=== PATIENT | male | born 1995 | race Caucasian/White ===

== ENCOUNTER 2023-08-17 02:23 | Emergency (ER) | payer MEDICAID ==
[~2023-08-17] VITALS: Ht 188 cm; Wt 79.5 kg
[2023-08-17 02:30] VITALS: TEMP 98.1
[2023-08-17 02:33] VITALS: BP 161/79; PULSE 81; RESP 17; O2SAT 98
[2023-08-17] MEDS ORDERED: CLIN300C70 PO (03:43)
[2023-08-17] MEDS ORDERED: IBUP-1456 PO (03:43)
[2023-08-17] MEDS ORDERED: CEPH500C PO (03:43)
[2023-08-17] MEDS ORDERED: cefTRIAXone SOD 1,000 MG VL IM ONE (03:45)
[2023-08-17] MEDS ORDERED: KETOROLAC TROMETH 60MG/2ML VIAL IM ONE (03:45)
== END 2023-08-17 04:07 | disposition home or self-care (01) ==
LOC: ER 02:23
DX: L03.113 Cellulitis of right upper limb (principal); F17.210 Nicotine dependence, cigarettes, uncomplicated; F15.90 Other stimulant use, unspecified, uncomplicated; Z79.899 Other long term (current) drug therapy
CPT/HCPCS: 73140; 96372; 99284; J0696; J1885

== ENCOUNTER 2024-06-12 11:10 | Emergency (ER) | payer MEDICAID ==
[~2024-06-12] VITALS: Ht 182.9 cm; Wt 85.0 kg
[~2024-06-12 11:10] MED LIST: CEPH500C PO; CLIN1CAP70 PO; IBUP-1456 PO
[2024-06-12 11:27] VITALS: BP 157/107; PULSE 85; RESP 20; TEMP 98.6; O2SAT 94
[2024-06-12] MEDS ORDERED: KETOROLAC TROMETH 30 MG/ML 1ML VIAL IV ONE (11:45)
--- NOTE | 2024-06-12 11:53 | ED.PDOC ---
History of Present Illness HPI Comments 29-year-old male patient with no past medical history presented with complaints of right-sided flank pain that started yesterday morning associated with nausea vomiting and diarrhea for last one day. He described the pain as stabbing, 10/10, radiating to the right-sided groin. He does not remember the number of episodes of vomiting but mentioned no blood. He does not remember the number of loose stools but mentioned no blood. He denied any complaints of urinary frequency, burning micturition, chest pain, shortness of breath, cough, headache, dizziness. He denied any recent trauma or injury. Past medical history Denied Past surgical history Denied Social history Patient is active smoker, consumes marijuana, denied alcohol or any other drug intake Family history Noncontributory Allergic history No known allergies Medication history Denied Review of system As described in the HPI Examination General Appearance: Alert, Oriented X3, Cooperative, No acute distress Eyes : No erythema, no discharge Respiratory: Bilateral air entry present, no crackles, no wheezing Cardiovascular: Regular rate, Normal S1, Normal S2, no S3, no S4, no murmurs Abdominal: Soft, right flank tenderness, right lower quadrant tenderness, no generalized tenderness on generalized rigidity, no rebound tenderness Extremities: No cyanosis, No edema, Normal pulses, No tenderness/swelling Skin: No rashes, No breakdown Neuro: Normal gait, Normal speech, normal tone Attestation note: Dr. Ross: I was the supervising attending for this ED encounter. Please see the resident's notes. I was available for questions and consultations. Differential diagnosis: Flank pain Flank Pain; DDX include Nephrolethiasis, obstructive uropathy, kidney cancer, renal infarct, intraabdominal neoplasm, lower lobe pneumonia, retroperitoneal hemorrhage, pancreatitis, aneurysm, dissection, musculoskeletal, rib contusion/trauma, hematoma, PYLONEPHRITIS, muscle strain, spinal disease. MDM: Patient presented with the above HPI.-flank pain/GI symptoms-----workup was initiated. patient was found with the above mentioned diagnosis. Patient eloped. We were intending to admit the patient to the hospital. Chief Complaint: Flank Pain Time Seen by MD: 11:22 Primary Care Provider: none Reviewed Notes: Nurses Notes, Formulation Technician Notes, Medications, Allergies Allergies: Coded Allergies: NO KNOWN ALLERGIES (Unverified , 08/17/23) Home Meds Active Scripts Clindamycin Hcl (Clindamycin Hcl) 300 Mg Cap, 1 CAP PO TID for 7 Days, #21 CAP 0 Refills Prov:ARIANA PETERS 08/17/23 Ibuprofen (Ibuprofen) 800 Mg Tab, 1 TAB PO TID PRN, #30 TAB 0 Refills Prov:ARIANA PETERS 08/17/23 Cephalexin Monohydrate (Cephalexin) 500 Mg Cap, 1 CAP PO BID for 7 Days, #14 CAP 0 Refills Prov:ARIANA PETERS 08/17/23 Information Source: Patient, Emergency Med Personnel Mode of Arrival: EMS Differential Dx Considerations may include: UTI, ureterolithiasis, pancreatitis, gastritis, gastroduodenitis, appendicitis, cholecystitis, choledocholithiasis, cholelithiasis, cholangitis, colitis, diverticulitis X-Ray, Labs, Meds, VS Vital Signs Date Time Temp Pulse Resp B/P (MAP) Pulse Ox O2 Delivery O2 Flow Rate FiO2 06/12/24 11:28 Room Air* 0 21 06/12/24 11:27 98.6 85 20 157/107 (124) 94 98.6 06/12/24 11:18 98.9 86 24 96 Lab Test 06/12/24 12:33 Range/Units White Blood Count 13.2 H 4.4-10.8 10^3/uL Red Blood Count 5.69 4.5-5.90 10^6/uL Hemoglobin 16.8 13.5-17.5 g/dL Hematocrit 48.5 41.0-53.0 % Mean Corpuscular Volume 85.3 80.0-100.0 fL Mean Corpuscular Hemoglobin 29.6 28.0-32.0 pg Mean Corpuscular Hemoglobin Concent 34.7 32.0-36.0 g/dL Red Cell Distribution Width 12.7 11.8-14.3 % Platelet Count 327 140-450 10^3/uL Mean Platelet Volume 6.7 L 6.9-10.8 fL Neutrophils (%) (Auto) 85.0 H 37.0-80.0 % Lymphocytes (%) (Auto) 8.1 L 10.0-50.0 % Monocytes (%) (Auto) 5.1 0.0-12.0 % Eosinophils (%) (Auto) 1.6 0.0-7.0 % Basophils (%) (Auto) 0.2 0.0-2.0 % Neutrophils # (Auto) 11.2 H 1.6-8.6 10 ^3/uL Lymphocytes # (Auto) 1.1 0.4-5.4 10 ^3/uL Monocytes # (Auto) 0.7 0-1.3 10 ^3/uL Eosinophils # (Auto) 0.2 0-0.8 10 ^3/uL Basophils # (Auto) 0 0-0.2 10 ^3/uL Nucleated Red Blood Cells 0.1 % Sodium Level 140 136-145 mmol/L Potassium Level 4.1 3.5-5.1 mmol/L Chloride Level 101 98-107 mmol/L Carbon Dioxide Level 33 H 20-31 mmol/L Anion Gap 6 5-15 Blood Urea Nitrogen 13 9-23 mg/dL Creatinine 1.21 0.700-1.30 mg/dL Glomerular Filtration Rate Calc 82 >90 mL/min BUN/Creatinine Ratio 10.7 10.0-20.0 Serum Glucose 139 H 74-106 mg/dL Lactic Acid Level 1.0 0.4-2.0 mmol/L Calcium Level 10.4 8.7-10.4 mg/dL Total Bilirubin 0.5 0.2-1.0 mg/dL Aspartate Amino Transferase (AST) 20 13-40 U/L Alanine Aminotransferase (ALT) 24 7-40 U/L Alkaline Phosphatase 126 H 46-116 U/L Troponin I High Sensitivity 3 L </=54 ng/L Total Protein 7.6 5.7-8.2 g/dL Albumin 5.0 H 3.2-4.8 g/dL Lipase 57 H 12-53 U/L [place] [address] Ph: [phone] DIAGNOSTIC IMAGING Diagnostic Imaging Report : [id number] Signed PATIENT: ERMELINDA RAYO ACCT: [id number] UNIT: [id number] : 1995 LOC: ER ROOM / BED: / AGE / SEX: 29 / M ADM STATUS: REG ER SERVICE 1139 ORDERING PHYSICIAN: ODETTE MONTES RESIDENT PROCEDURE(s): ABPL - CT AB PEL WO CON-NO ORAL OR IV REASON: right flank pain ORDER NUMBER(s): [id number], ACCESSION NUMBER(s): [id number] CT ABDOMEN AND PELVIS WITHOUT CONTRAST CLINICAL HISTORY: right flank pain TECHNIQUE: Multiple contiguous axial images of the abdomen and pelvis without intravenous contrast. The images were reformatted degenerate coronal and sagittal reconstructions. All CT scans at this medical facility are performed using dose modulation techniques as appropriate to a performed exam including the following:Automated exposure control was utilized; adjustment of the MA and/or KV according to patient size; and use of iterative reconstruction technique. Radiation Dose Information: CT Dose: CTDI volume is 6 mGy. Dose-length product is 359 mGy*cm Comparison: None FINDINGS: Evaluation of the abdomen and pelvis is limited without intravenous contrast. There is a 5 mm calculus in the proximal to mid right ureter with right hydroureteronephrosis. There is also a punctate 1 mm calculus in the midpole of the right kidney. There is no evidence of left renal calculus or hydronephrosis. The liver, gallbladder, pancreas, adrenal glands, and spleen appear within normal limits. There is no gross evidence of abdominal lymphadenopathy. There is no free fluid or free air. The stomach grossly appears unremarkable. The small and large bowel loops demonstrate normal caliber. The abdominal aorta and IVC appear within normal limits. The bladder appears unremarkable for the degree of distention. Pelvic organ appears within normal limits. There is no gross evidence of a pelvic mass. There is no free fluid collection. Lung bases are clear. There is no acute osseous abnormality. IMPRESSION: 1. 5 mm calculus in the proximal to mid right ureter. There is right hydroureteronephrosis. 2. Additional punctate 1 mm calculus in the midpole of the right kidney. HS:Y ATED BY: PEDRO BURRELL MD DICTATED DATE/TIME: 06/12/24 1232 SIGNED BY: PEDRO BURRELL MD SIGNED DATE/TIME: 06/12/24 123 CC: X-Ray, Labs, Meds, VS Comment [address] [address] Ph: [phone] DIAGNOSTIC IMAGING Diagnostic Imaging Report : [id number] Signed PATIENT: ERMELINDA RAYO ACCT: [id number] UNIT: [id number] : 1995 LOC: ER ROOM / BED: / AGE / SEX: 29 / M ADM STATUS: REG ER SERVICE 1139 ORDERING PHYSICIAN: ODETTE MONTES RESIDENT PROCEDURE(s): ABPL - CT AB PEL WO CON-NO ORAL OR IV REASON: right flank pain ORDER NUMBER(s): [id number], ACCESSION NUMBER(s): [id number] CT ABDOMEN AND PELVIS WITHOUT CONTRAST CLINICAL HISTORY: right flank pain TECHNIQUE: Multiple contiguous axial images of the abdomen and pelvis without intravenous contrast. The images were reformatted degenerate coronal and sagittal reconstructions. All CT scans at this medical facility are performed using dose modulation techniques as appropriate to a performed exam including the following:Automated exposure control was utilized; adjustment of the MA and/or KV according to patient size; and use of iterative reconstruction technique. Radiation Dose Information: CT Dose: CTDI volume is 6 mGy. Dose-length product is 359 mGy*cm Comparison: None FINDINGS: Evaluation of the abdomen and pelvis is limited without intravenous contrast. There is a 5 mm calculus in the proximal to mid right ureter with right hydroureteronephrosis. There is also a punctate 1 mm calculus in the midpole of the right kidney. There is no evidence of left renal calculus or hydronephrosis. The liver, gallbladder, pancreas, adrenal glands, and spleen appear within normal limits. There is no gross evidence of abdominal lymphadenopathy. There is no free fluid or free air. The stomach grossly appears unremarkable. The small and large bowel loops demonstrate normal caliber. The abdominal aorta and IVC appear within normal limits. The bladder appears unremarkable for the degree of distention. Pelvic organ appears within normal limits. There is no gross evidence of a pelvic mass. There is no free fluid collection. Lung bases are clear. There is no acute osseous abnormality. IMPRESSION: 1. 5 mm calculus in the proximal to mid right ureter. There is right hydroureteronephrosis. 2. Additional punctate 1 mm calculus in the midpole of the right kidney. HS:Y ATED BY: PEDRO BURRELL MD DICTATED DATE/TIME: 06/12/24 1232 SIGNED BY: PEDRO BURRELL MD SIGNED DATE/TIME: 06/12/24 1232 CC: Time of 1ST Reevaluation: 14:21 Reevaluation 1ST: Patient eloped Patient Education/Counseling: Diagnosis, Treatment Family Education/Counseling: No Family Present Comments MDM Patient presented with the right-sided flank pain, nausea, vomiting, diarrhea. workup was initiated. Patient was given: [place] oral tablet, IV fluids CT abd pelvis without contrast showed 1. 5 mm calculus in the proximal to mid right ureter. There is right hydroureteronephrosis. 2. Additional punctate 1 mm calculus in the midpole of the right kidney. Later Pt eloped from the ER. Departure 1 Departure Time of Disposition: 14:21 Impression: Primary Impression: Right ureteral calculus Additional Impressions: Hydroureter, right Hydronephrosis, right Vomiting Diarrhea Leukocytosis Eloped from emergency department Disposition: 07 LEFT AWOL/ELOPED Condition: Other (undetermined as patient eloped. ) Additional Instructions: Eloped Discharged With: Self Critical Care Note Critical Care Time?: No Was a procedure done? Was a procedure done?: No I personally scribed for CORINE ROSS DO ([email or web address]) on 06/12/24 at 20:24. Electronically submitted by Rafaela Padilla ([email or web address]). ODETTE MONTES RESIDENT Jun 12, 2024 11:53 CORINE ROSS DO Jun 12, 2024 20:24
[2024-06-12] MEDS: HYDROcodone-ACET 5/325MG TAB PO ONE (12:02)
[2024-06-12] MEDS: SODIUM CHLORIDE 0.9% 1,000 ML IV ONE (12:03)
--- NOTE | 2024-06-12 12:32 | DVH ---
CT ABDOMEN AND PELVIS WITHOUT CONTRAST CLINICAL HISTORY: right flank pain TECHNIQUE: Multiple contiguous axial images of the abdomen and pelvis without intravenous contrast. The images were reformatted degenerate coronal and sagittal reconstructions. All CT scans at this medical facility are performed using dose modulation techniques as appropriate t o a performed exam including the following:Automated exposure control was utilized; adjustment of the MA and/or KV according to patient size; and use of iterative reconstruction technique. Radiation Dose Information: CT Dose: CTDI volume is 6 mGy. Dose-length product is 359 mGy*cm Comparison: None FINDINGS: Evaluation of the abdomen and pelvis is limited without intravenous contrast. There is a 5 mm calculus in the proximal to mid right ureter with right hydroureteronephrosis. There is also a punctate 1 mm calculus in the midpole of the right kidney. There is no evidence of left helder al calculus or hydronephrosis. The liver, gallbladder, pancreas, adrenal glands, and spleen appear within normal limits. There is no gross evidence of abdominal lymphadenopathy. There is no free fluid or free air. The stomach grossly appears unremarkable. The small and large bowel loops demonstrate normal caliber . The abdominal aorta and IVC appear within normal limits. The bladder appears unremarkable for the degree of distention. Pelvic organ appears within normal morton its. There is no gross evidence of a pelvic mass. There is no free fluid collection. Lung bases are clear. There is no acute osseous abnormality. IMPRESSION: 1. 5 mm calculus in the proximal to mid right ureter. There is right hydroureteronephrosis. 2. Additional punctate 1 mm calculus in the midpole of the right kidney. HS:Y
[2024-06-12 13:13] LABS: Basophils # (auto) 0 10 ^3/uL (0-0.2); Basophils % (auto) 0.2 % (0.0-2.0); Eosinophils # (auto) 0.2 10 ^3/uL (0-0.8); Eosinophils % (auto) 1.6 % (0.0-7.0); Hematocrit 48.5 % (41.0-53.0); Hemoglobin 16.8 g/dL (13.5-17.5); Lymphocytes # (auto) 1.1 10 ^3/uL (0.4-5.4); Lymphocytes % (auto) 8.1 % (10.0-50.0); Mean Corpuscular Hemoglobin 29.6 pg (28.0-32.0); Mean Corpuscular Hgb Conc. 34.7 g/dL (32.0-36.0); Mean Corpuscular Volume 85.3 fL (80.0-100.0); Monocytes # (auto) 0.7 10 ^3/uL (0-1.3); Monocytes % (auto) 5.1 % (0.0-12.0); Neutrophils # (auto) 11.2 10 ^3/uL (1.6-8.6); Nucleated Red Blood Cells % 0.1 %; Platelet Count (auto) 327 10^3/uL (140-450); Red Blood Cells 5.69 10^6/uL (4.5-5.90); Red Cell Distribution Width 12.7 % (11.8-14.3); White Blood Cell 13.2 10^3/uL (4.4-10.8)
[2024-06-12 13:39] LABS: Alanine Aminotransferase 24 U/L (7-40); Alkaline Phosphatase 126 U/L (46-116); Anion Gap 6 (5-15); Aspartate Aminotransferase 20 U/L (13-40); BUN/Creatinine Ratio 10.7 (10.0-20.0); Blood Urea Nitrogen 13 mg/dL (9-23); Calcium 10.4 mg/dL (8.7-10.4); Carbon Dioxide 33 mmol/L (20-31); Chloride 101 mmol/L (98-107); Glucose 139 mg/dL (74-106); Lipase 57 U/L (12-53); Potassium 4.1 mmol/L (3.5-5.1); Sodium 140 mmol/L (136-145)
[2024-06-12 13:40] LABS: Bilirubin, Total 0.5 mg/dL (0.2-1.0); Total Protein 7.6 g/dL (5.7-8.2)
[2024-06-12] MEDS ORDERED: cefTRIAXone 1GM/50ML D5W 50 ML IV ONE (13:45)
[2024-06-12] MEDS ORDERED: TAMSULOSIN HYDROCHLORIDE 0.4 MG CAP PO ONE (13:45)
[2024-06-12] MEDS ORDERED: fentaNYL CITRATE 100 MCG/2 ML VL IV ONE (13:45)
== END 2024-06-12 14:21 | disposition left against medical advice (07) ==
LOC: EDBD 11:10 → ER 11:10
DX: D72.829 Elevated white blood cell count, unspecified (principal); N13.2 Hydronephrosis with renal and ureteral calculous obstruction; N13.4 Hydroureter; R19.7 Diarrhea, unspecified; F17.210 Nicotine dependence, cigarettes, uncomplicated; F15.90 Other stimulant use, unspecified, uncomplicated; Z53.29 Procedure and treatment not carried out because of patient's decision for other reasons; Z79.899 Other long term (current) drug therapy
CPT/HCPCS: 36415; 74176; 80053; 83605; 83690; 84484; 85025; 96360; 99284; J1885; J7030